=== PATIENT | male | born 1975 | race Caucasian/White ===

== ENCOUNTER 2021-01-12 12:42 | Inpatient (IN) | payer MEDICAID ==
[~2021-01-12] VITALS: Ht 182.9 cm; Wt 116.0 kg
--- NOTE | 2021-01-12 12:52 | NUR ---
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
--- NOTE | 2021-01-12 13:17 | NUR ---
SPO2 WAS 92-94% ON RA. PT HAS WHEEZING & CRACKLES ON AUSCULTATION. PLACED ON O2 AT 2L NC. Addendum: 01/12/21 at 1531 by HBENSON SPO2 WAS 92-94% ON RA. PT HAS RHONCHI & CRACKLES ON AUSCULTATION. PLACED ON O2 AT 2L NC. PT REPORTS HE CAN'T SLEEP AT NIGHT D/T WHEEZING & COUGHING, "I CAN'T BREATHE".
[2021-01-12] MEDS ORDERED: SODIUM CHLORIDE FLUSH 10ML SYR IVF ONE (13:30)
[2021-01-12] MEDS ORDERED: ASPIRIN 81 MG TABLET CHEW PO ONE (13:30)
[2021-01-12] MEDS ORDERED: CEFTRIAXONE 1,000 MG in DEXTROSE 5% 50 ML IVPB ONE (13:30)
[2021-01-12] MEDS ORDERED: AZITHROMYCIN 500 MG in SODIUM CHLORIDE 0.9% 250 ML IV STA (13:32)
[2021-01-12] MEDS ORDERED: ASPIRIN 81 MG TABLET CHEW ONE (13:39)
[2021-01-12 13:46] LABS: BASOPHILS % (AUTO) 1 % (0-1); EOSINOPHILS % (AUTO) 6 % (1-7); LYMPHOCYTES % (AUTO) 30 % (22-44); MEAN CORPUSCULAR HEMOGLOBIN 33.4 pg (27.5-34.5); MEAN CORPUSCULAR HGB CONC 35.5 g/dL (33.2-36.2); MEAN PLATELET VOLUME 8.2 fL (7.4-10.4); MONOCYTES % (AUTO) 8 % (2-9); NEUTROPHILS % (AUTO) 55 % (42-75); PLATELET COUNT 185 x10^3/uL (130-400); RED BLOOD COUNT 4.56 x10^6/uL (4.38-5.82); RED CELL DISTRIBUTION WIDTH 13.6 % (9.4-14.8)
[2021-01-12 13:54] LABS: ALBUMIN 3.6 g/dL (3.4-5.0); ANION GAP 4 mmol/L (5-15); CALCIUM 8.5 mg/dL (8.5-10.1); CHLORIDE 110 mmol/L (98-107)
[2021-01-12 14:00] LABS: ALANINE AMINOTRANSFERASE 50 U/L (12-78); ALKALINE PHOSPHATASE 113 U/L (45-117); BILIRUBIN,TOTAL 0.3 mg/dL (0.2-1.0); TOTAL PROTEIN 7.1 g/dL (6.4-8.2); TROPONIN I < 0.015 ng/mL (0.000-0.045)
--- NOTE | 2021-01-12 14:16 | NUR ---
CONFIRMED WITH ERP THAT SHE DOES WANT ABX FOR PT. PT AMBULATED TO BR WITHOUT DIFFICULTY. UPDATED ON POC.
[2021-01-12] MEDS ORDERED: OMNIPAQUE 350 MG/ML, 75ML BOTTLE ONE (14:30)
--- NOTE | 2021-01-12 14:30 | NUR ---
PT TO IMAGING VIA [employer].
--- NOTE | 2021-01-12 15:14 | NUR ---
PT PLAYING GAME ON HIS PHONE. AT BS. PT'S SPO2 90-91% ON RA; PT REFUSING TO WEAR O2 AT THIS TIME, STATES, "IT'S DRYING OUT MY NOSE".
--- NOTE | 2021-01-12 15:25 | NUR ---
JUAN DAVID WILSON AT FOR STAT ECHO.
[2021-01-12] MEDS ORDERED: ASPI-963 PO (15:44)
--- NOTE | 2021-01-12 16:17 | NUR ---
ECHO COMPLETED. PT DOING OKAY WHEN SITTING UP IN GURNEY, ALSO AMBULATING TO BR WITHOUT DIFFICULTY. SPO2 95% ON RA AT THIS TIME. PT C/O R RIB PAIN WITH COUGHING OR WHEN SITTING UP A CERTAIN WAY. ERP NOTIFIED, WILL COME BACK TO SPEAK WITH PT.
--- NOTE | 2021-01-12 16:21 | NUR ---
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
[2021-01-12] MEDS ORDERED: ALBUTEROL/IPRATROPIUM 2.5MG/0.5MG, 3 ML NPPB SCH (17:00)
[2021-01-12] MEDS ORDERED: ALBUTEROL/IPRATROPIUM 2.5MG/0.5MG, 3 ML ONE (17:45)
[2021-01-12] MEDS ORDERED: ONDANSETRON 2MG/ML, 2ML ONE (17:46)
[2021-01-12] MEDS ORDERED: MORPHINE SULFATE 4 MG/ML, 1ML ONE (17:46)
[2021-01-12] MEDS ORDERED: morphine SULFATE 10 MG/ML, 1ML IVPush PRN (18:00)
[2021-01-12] MEDS ORDERED: ONDANSETRON ODT 4 MG PO PRN (18:00)
[2021-01-12] MEDS ORDERED: ACETAMINOPHEN 325 MG TABLET PO PRN (18:00)
[2021-01-12] MEDS ORDERED: TEMAZEPAM 15 MG CAPSULE PO PRN (18:00)
[2021-01-12] MEDS ORDERED: BISACODYL 10 MG SUPP PR PRN (18:00)
[2021-01-12] MEDS ORDERED: ONDANSETRON 2MG/ML, 2ML IVPush ONE (18:00)
[2021-01-12] MEDS ORDERED: ONDANSETRON 2MG/ML, 2ML IVPush PRN (18:00)
[2021-01-12] MEDS ORDERED: POLYETHYLENE GLYCOL 17 GM PACKET PO PRN (18:00)
[2021-01-12] MEDS ORDERED: DOCUSATE 100 MG CAPSULE PO PRN (18:00)
[2021-01-12] MEDS ORDERED: morphine SULFATE/PF 1 MG/ML, 10ML IVPush ONE (18:00)
[2021-01-12] MEDS ORDERED: MORPHINE SULFATE 4 MG/ML, 1ML IVPush ONE (18:00)
--- NOTE | 2021-01-12 18:05 | NUR ---
PER ADMITTING MD, PT DOES NOT NEED BREATHING TX AT THIS TIME, WILL BE PRN. PT MEDICATED WITH MORPHINE FOR R RIB PAIN. O2 IN PLACE AT 2L NC. PT REQUESTING TO GO OUTSIDE TO SMOKE, INFORMED THIS IS NOT POSSIBLE WHILE IN THE HOSPITAL. DINNER TRAY ORDERED BUT NOT RECEIVED FROM [facility] YET. PT TAKEN UPSTAIRS TO TELE FLOOR WITH [employer].
[2021-01-12] MEDS ORDERED: HEPARIN 25,000 UNITS/250ML PMX 250 ML IV PRN ×2 (18:30→19:00)
[2021-01-12] MEDS ORDERED: HEPARIN 5,000 UNITS/ML, 1ML IV PRN ×2 (18:30→19:00)
[2021-01-12] MEDS ORDERED: HEPARIN 5,000 UNITS/ML, 1ML IV ONE ×2 (18:30→19:00)
[2021-01-12 19:17] LABS: RAPID INFLUENZA A Negative (Negative); RAPID INFLUENZA B Negative (Negative)
[2021-01-12] MEDS: FUROSEMIDE 20 MG/2 ML IV SCH (19:51)
[2021-01-12] MEDS: GUAIFENESIN/COD200MG-20MG/10ML LIQUID PO SCH (19:58)
[2021-01-12] MEDS: methylPREDNISolone SOD SUCC 125 MG/2 ML IVPush SCH (19:58)
[2021-01-12] MEDS: FLUTICASONE NASAL SPRAY 16GM NAS SCH (19:59)
[2021-01-12] MEDS: ATORVASTATIN 40 MG TABLET PO SCH (19:59)
[2021-01-12 20:00] VITALS: BP 119/83
[2021-01-12 20:23] LABS: MICROSCOPIC NOT IND
[2021-01-12] MEDS: HYDROcodone/APAP 5/325 TABLET PO PRN (21:27)
[2021-01-13 01:56] VITALS: BP 108/73
[2021-01-13] MEDS: methylPREDNISolone SOD SUCC 125 MG/2 ML IVPush SCH ×2 (01:56→08:06)
[2021-01-13] MEDS: GUAIFENESIN/COD200MG-20MG/10ML LIQUID PO SCH ×2 (01:56→08:07)
[2021-01-13 02:20] LABS: BASOPHILS % (AUTO) 1 % (0-1); EOSINOPHILS % (AUTO) 0 % (1-7); LYMPHOCYTES % (AUTO) 14 % (22-44); MEAN CORPUSCULAR HEMOGLOBIN 33.1 pg (27.5-34.5); MEAN CORPUSCULAR HGB CONC 34.6 g/dL (33.2-36.2); MEAN PLATELET VOLUME 8.4 fL (7.4-10.4); MONOCYTES % (AUTO) 3 % (2-9); NEUTROPHILS % (AUTO) 83 % (42-75); PLATELET COUNT 201 x10^3/uL (130-400); RED BLOOD COUNT 4.66 x10^6/uL (4.38-5.82); RED CELL DISTRIBUTION WIDTH 13.7 % (9.4-14.8)
[2021-01-13 02:21] LABS: HCT (SEDRATE) 44.1 % (39.2-51.8)
[2021-01-13 02:32] LABS: ALANINE AMINOTRANSFERASE 56 U/L (12-78); ALBUMIN 3.7 g/dL (3.4-5.0); ANION GAP 6 mmol/L (5-15); CALCIUM 8.9 mg/dL (8.5-10.1); CHLORIDE 105 mmol/L (98-107); CHOLESTEROL, TOTAL 202 mg/dL (140-239); CREATININE 1.06 mg/dL (0.7-1.3)
[2021-01-13 02:41] LABS: ALKALINE PHOSPHATASE 105 U/L (45-117); BILIRUBIN,TOTAL 0.4 mg/dL (0.2-1.0); CHOL/HDL RATIO 4.5; HDL CHOL % 22 % (26-37); HDL CHOLESTEROL (DIRECT) 45 mg/dL (40-60); LDL CHOLESTEROL,CALCULATED 136 mg/dL (54-169); TOTAL PROTEIN 7.8 g/dL (6.4-8.2); TRIGLYCERIDES 107 mg/dL (50-200); VLDL CHOLESTEROL 21 mg/dL (0-25)
[2021-01-13] MEDS ORDERED: CARVEDILOL 3.125 MG TABLET PO SCH (06:00)
[2021-01-13] MEDS: HYDROcodone/APAP 5/325 TABLET PO PRN (06:23)
[2021-01-13 07:30] VITALS: BP 114/77
[2021-01-13] MEDS: FUROSEMIDE 20 MG/2 ML IV SCH (08:06)
[2021-01-13] MEDS: AZITHROMYCIN 500 MG TABLET PO SCH (08:06)
[2021-01-13] MEDS: PANTOPRAZOLE 40MG TABLET PO SCH (08:06)
[2021-01-13] MEDS: CETIRIZINE 10 MG TABLET PO SCH (08:06)
[2021-01-13] MEDS: FLUTICASONE NASAL SPRAY 16GM NAS SCH ×2 (08:07→19:59)
[2021-01-13] MEDS ORDERED: LISINOPRIL 5 MG TABLET PO SCH ×2 (09:00)
[2021-01-13] MEDS ORDERED: GUAIFENESIN/COD200MG-20MG/10ML LIQUID PO PRN (11:30)
[2021-01-13] MEDS: methylPREDNISolone SOD SUCC 40 MG/ML IV SCH ×2 (11:51→19:59)
[2021-01-13] MEDS: FUROSEMIDE 40 MG/4 ML IV SCH (13:04)
[2021-01-13 13:14] VITALS: BP 123/78
[2021-01-13] MEDS: CEFTRIAXONE 2 GM in DEXTROSE 5% 50 ML IVPB SCH (14:36)
[2021-01-13] MEDS ORDERED: BUTALB/APAP/CAFFEINE 50MG/325MG/40MG PO ONE (15:30)
[2021-01-13] MEDS: CARVEDILOL 6.25 MG TABLET PO SCH (17:42)
[2021-01-13 19:44] VITALS: BP 122/80
[2021-01-13] MEDS: ATORVASTATIN 40 MG TABLET PO SCH (19:59)
[2021-01-14 01:04] VITALS: BP 106/73
[2021-01-14 05:48] LABS: ANION GAP 8 mmol/L (5-15); CALCIUM 9.1 mg/dL (8.5-10.1); CHLORIDE 104 mmol/L (98-107)
[2021-01-14 05:51] LABS: CREATININE 0.88 mg/dL (0.7-1.3)
[2021-01-14 05:55] LABS: MEAN CORPUSCULAR HEMOGLOBIN 32.3 pg (27.5-34.5); MEAN PLATELET VOLUME 8.7 fL (7.4-10.4); PLATELET COUNT 229 x10^3/uL (130-400); RED BLOOD COUNT 4.56 x10^6/uL (4.38-5.82); RED CELL DISTRIBUTION WIDTH 13.7 % (9.4-14.8)
[2021-01-14 07:11] LABS: <RBC MORPHOLOGY> NORMAL; BANDS%(MANUAL) 4 % (0-7); LYMPH#(MANUAL) 1.57 x10^3/uL (1-3.4); LYMPHS% (MANUAL) 9 % (22-44); MONOS% (MANUAL) 4 % (2-9); SEG#(MANUAL) 14.44 x10^3/uL (1.8-6.8); SEGS% (MANUAL) 83 % (42-75)
[2021-01-14 07:12] LABS: <PLATELET ESTIMATE> ADEQUATE; <PLT MORPHOLOGY> NORMAL PLT MORPH
[2021-01-14 07:35] VITALS: BP 124/85
[2021-01-14] MEDS: PANTOPRAZOLE 40MG TABLET PO SCH (07:57)
[2021-01-14] MEDS: CARVEDILOL 6.25 MG TABLET PO SCH ×2 (07:57→17:33)
[2021-01-14] MEDS: FUROSEMIDE 40 MG/4 ML IV SCH (07:57)
[2021-01-14] MEDS: CETIRIZINE 10 MG TABLET PO SCH (07:57)
[2021-01-14] MEDS: methylPREDNISolone SOD SUCC 40 MG/ML IV SCH (07:57)
[2021-01-14] MEDS: AZITHROMYCIN 500 MG TABLET PO SCH (07:57)
[2021-01-14] MEDS: FLUTICASONE NASAL SPRAY 16GM NAS SCH (07:58)
[2021-01-14] MEDS ORDERED: NICOTINE 14MG/24 HR PATCH.TD24 TD SCH (09:00)
[2021-01-14] MEDS ORDERED: LISINOPRIL 5 MG TABLET PO SCH (09:00)
[2021-01-14 13:10] VITALS: BP 117/77
[2021-01-14] MEDS: CEFTRIAXONE 2 GM in DEXTROSE 5% 50 ML IVPB SCH (13:37)
[2021-01-14] MEDS ORDERED: APIXABAN 5 MG TABLET PO SCH (14:00)
[2021-01-14] MEDS ORDERED: POT1TABL2 PO (16:42)
[2021-01-14] MEDS ORDERED: PANT40TA6 PO (16:42)
[2021-01-14] MEDS ORDERED: APIX5TAB PO (16:42)
[2021-01-14] MEDS ORDERED: FLUT16SP24 NAS (16:42)
[2021-01-14] MEDS ORDERED: FURO40TA6 PO (16:42)
[2021-01-14] MEDS ORDERED: AMOX1TAB64 PO (16:42)
[2021-01-14] MEDS ORDERED: LISI5TAB7 PO (16:42)
[2021-01-14] MEDS ORDERED: CARV6.2512 PO (16:42)
[2021-01-14] MEDS ORDERED: CETI10TA18 PO (16:42)
[2021-01-14] MEDS ORDERED: ATOR40TA78 PO (16:42)
== END 2021-01-14 18:22 | disposition home or self-care (01) | DRG 281 ==
LOC: ED 15:41 → EDIP 15:53 → 5SO 18:18
PROVIDERS: ADMIT Hospitalist; ATTEND Internal Medicine
DX: I21.19 ST elevation (STEMI) myocardial infarction involving other coronary artery of inferior wall (principal); J44.1 Chronic obstructive pulmonary disease with (acute) exacerbation; F17.210 Nicotine dependence, cigarettes, uncomplicated; I11.0 Hypertensive heart disease with heart failure; I25.10 Atherosclerotic heart disease of native coronary artery without angina pectoris; I25.2 Old myocardial infarction; I25.5 Ischemic cardiomyopathy; I50.9 Heart failure, unspecified; Z82.3 Family history of stroke; Z91.14 Patient's other noncompliance with medication regimen; Z95.5 Presence of coronary angioplasty implant and graft
CPT/HCPCS: 36415; 87400; 96365; 96367; 96375; 99291; C8929; 71045; 71275; 76700; 80048; 80053; 80061; 81003; 83036; 83605; 83735; 83880; 84100; 84443; 84484; 85025; 85520; 85651; 87040; 93005; G0378; J0456; J0696; J1644; J1940; J2405; Q9957; Q9967; J2270; J2920; J2930; J7050

== ENCOUNTER → 2021-02-18 | Outpatient (CLI) | payer MEDICAID ==
[~2021-02-18] MED LIST: AMOX1TAB64 PO; APIX5TAB PO; ASPI-963 PO; ATOR40TA78 PO; CARV6.2512 PO; CETI10TA18 PO; FLUT16SP24 NAS; FURO40TA6 PO; LISI5TAB7 PO; PANT40TA6 PO; POT1TABL2 PO
== END | disposition home or self-care (01) ==
LOC: CVU 06:36
PROVIDERS: ATTEND Physician Assistant
DX: I34.0 Nonrheumatic mitral (valve) insufficiency (principal); I42.9 Cardiomyopathy, unspecified; I51.3 Intracardiac thrombosis, not elsewhere classified
CPT/HCPCS: C8929; Q9957

== ENCOUNTER 2021-03-17 08:30 | Emergency (ER) | payer MEDICAID ==
[~2021-03-17] VITALS: Ht 185.4 cm; Wt 114.4 kg
[2021-03-17] MEDS ORDERED: METHOCARBAMOL 500 MG TABLET ONE (09:28)
[2021-03-17] MEDS ORDERED: HYDROcodone/APAP 5/325 TABLET ONE (09:29)
--- NOTE | 2021-03-17 09:30 | NUR ---
PT TO XR
--- NOTE | 2021-03-17 09:57 | NUR ---
pt resting in bed watching tv. vss
[2021-03-17] MEDS ORDERED: HYDROcodone/APAP 5/325 TABLET PO ONE (10:00)
[2021-03-17] MEDS ORDERED: METHOCARBAMOL 750 MG TABLET PO ONE (10:00)
[2021-03-17 10:04] LABS: MICROSCOPIC AUTO
[2021-03-17] MEDS ORDERED: COVID-19 VACC,MRNA(MODERNA)/PF 100 MCG/0.5ML IM-VACC ONE ×2 (10:30)
[2021-03-17 11:22] VITALS: BP 132/72
== END 2021-03-17 11:37 | disposition home or self-care (01) ==
LOC: ED 08:49
DX: M54.41 Lumbago with sciatica, right side (principal); Z23 Encounter for immunization
CPT/HCPCS: 0011A; 72110; 81001; 87086; 91301; 99284; 90471